=== PATIENT | female | born 1935 | race Caucasian/White ===

== ENCOUNTER → 2016-06-14 | Day surgery (SDC) | payer MEDICARE, BC ==
[~2016-06-14] VITALS: Ht 165.1 cm; Wt 78.9 kg
[~2016-06-14] MED LIST: CITRACAL+D(315M1 TAB PO; CONSTULOSE10 GM/15 M PO; COUMADIN ** IA5 MG PO; FLONASE 50 MCG/16 GM NOSE; LACTULOSE20 GM/30 M PO; LOVASTATIN40 MG PO; PREMARIN VAG30 GM VAG; PRILOSEC20 MG PO; SPIRONOLACTONE25 MG PO; SYMBICORT 16010.2 GM INH; THERA-VITE W/ B1 TAB PO; VITAMIN D-32000 UNI1 PO; VITAMIN E400 UNI2 PO
[2016-06-14 09:05] LABS: INR - (THERAPEUTIC) 1.1 (0.9-1.1); PROTIME 11.4 SECONDS (9.6-11.1)
== END | disposition disaster alternative care site (69) ==
LOC: GOPP 05-18 08:30 → GEND 07:19 → GOPP 07:30
PROVIDERS: Internal Medicine Adolescent Medicine
PROC: 0DB68ZX Excision of Stomach, Via Natural or Artificial Opening Endoscopic, Diagnostic (ICD-10-PCS; principal; 2016-06-14)
PROC: 0DB98ZX Excision of Duodenum, Via Natural or Artificial Opening Endoscopic, Diagnostic (ICD-10-PCS; 2016-06-14)
PROC: 0DBK8ZZ Excision of Ascending Colon, Via Natural or Artificial Opening Endoscopic (ICD-10-PCS; 2016-06-14)
PROC: 0DBN8ZZ Excision of Sigmoid Colon, Via Natural or Artificial Opening Endoscopic (ICD-10-PCS; 2016-06-14)
DX: Z12.11 Encounter for screening for malignant neoplasm of colon (principal); D12.5 Benign neoplasm of sigmoid colon; D12.2 Benign neoplasm of ascending colon; K31.9 Disease of stomach and duodenum, unspecified; K29.70 Gastritis, unspecified, without bleeding; K57.30 Diverticulosis of large intestine without perforation or abscess without bleeding; K44.9 Diaphragmatic hernia without obstruction or gangrene; K21.9 Gastro-esophageal reflux disease without esophagitis; Z88.2 Allergy status to sulfonamides; Z79.899 Other long term (current) drug therapy
CPT/HCPCS: J1610; J2001; J7030

== ENCOUNTER → 2016-08-25 | Outpatient (CLI) | payer MEDICARE, BC | END | disposition disaster alternative care site (69) | LOC: GRAD 08-05 09:30 | DX: Z12.31 Encounter for screening mammogram for malignant neoplasm of breast (principal); R10.12 Left upper quadrant pain; N26.1 Atrophy of kidney (terminal) | CPT/HCPCS: G0202 ==